=== PATIENT | male | born 1955 | race African-American/Black ===

== ENCOUNTER 2018-06-20 15:34 | Emergency (ER) | payer MEDICARE ==
[~2018-06-20] VITALS: Ht 182.9 cm; Wt 113.0 kg
[2018-06-20] MEDS ORDERED: OXYCODONE HCL/ACETAMINOPHEN 5/325MG TABLET PO ONE (17:30)
[2018-06-20 19:14] VITALS: BP 139/93
== END 2018-06-20 19:05 | disposition home or self-care (01) ==
LOC: ER 15:34
DX: M79.18 Myalgia, other site (principal); I11.0 Hypertensive heart disease with heart failure; I50.9 Heart failure, unspecified; I25.2 Old myocardial infarction; Z88.0 Allergy status to penicillin; V43.52XA Car driver injured in collision with other type car in traffic accident, initial encounter; Y93.89 Activity, other specified; Y92.410 Unspecified street and highway as the place of occurrence of the external cause
CPT/HCPCS: 99284

== ENCOUNTER 2018-11-17 16:40 | Emergency (ER) | payer MEDICARE, OTHER ==
[~2018-11-17] VITALS: Ht 175.3 cm; Wt 80.8 kg
[2018-11-17] MEDS ORDERED: ONDANSETRON HCL 4MG/2ML INJ IV ONE (17:00)
[2018-11-17] MEDS ORDERED: ALTEPLASE IV STA (17:24)
[2018-11-17] MEDS ORDERED: ALTEPLASE 100MG/VIAL IV STA (17:24)
[2018-11-17 17:32] LABS: BASOPHILS % 0.4 % (0.0-2.0); EOSINOPHILS % 1.7 % (0.0-5.0); HEMATOCRIT. 39.2 % (42.0-52.0); HEMOGLOBIN. 12.5 g/dL (14.0-18.0); LYMPHOCYTES % 17.9 % (20.0-50.0); MEAN CORPUSCULAR VOLUME 97.2 fL (80.0-94.0); MEAN PLATELET VOLUME 8.1 fl (7.4-10.4); MONOCYTES % 8.3 % (2.0-8.0); NEUTROPHILS % 71.7 % (40.0-76.0); PLATELET 279 x1000/uL (130-400); RED BLOOD CELL COUNT 4.03 mill/uL (4.7-6.1); RED CELL DISTRIBUTION WIDTH 18.4 % (11.6-14.6)
[2018-11-17 17:35] LABS: CHLORIDE 101 mEq/L (98-107)
[2018-11-17 17:40] LABS: ETHANOL BLOOD < 10 mg/dL
[2018-11-17 17:41] LABS: PROTHROMBIN TIME 61.4 sec (9.6-11.0)
[2018-11-17 17:43] LABS: LDL CHOLESTEROL 60 mg/dL (5-100)
[2018-11-17 17:45] LABS: INR 6.5
[2018-11-17] MEDS ORDERED: ASPIRIN 81MG TABLET PO NR (18:00)
[2018-11-17 18:10] VITALS: BP 101/74
[2018-11-17] MEDS ORDERED: IOHEXOL-350 100 ML BOTTLE ONE (19:24)
== END 2018-11-17 18:30 | disposition short-term general hospital (02) ==
LOC: ER 16:40 → CANBEDREQ 21:28
DX: I21.3 ST elevation (STEMI) myocardial infarction of unspecified site (principal); R74.8 Abnormal levels of other serum enzymes; N28.9 Disorder of kidney and ureter, unspecified; G93.40 Encephalopathy, unspecified; R78.89 Finding of other specified substances, not normally found in blood; R11.2 Nausea with vomiting, unspecified; I11.0 Hypertensive heart disease with heart failure; I50.9 Heart failure, unspecified; I25.2 Old myocardial infarction; Z86.73 Personal history of transient ischemic attack (TIA), and cerebral infarction without residual deficits; Z98.890 Other specified postprocedural states; Z88.0 Allergy status to penicillin
CPT/HCPCS: 36415; 70450; 70496; 70498; 71045; 80053; 80320; 82962; 83721; 84484; 85025; 85610; 85730; 93005; 96374; 99291; J2405; J2997; Q9967; G0480